=== PATIENT | female | born 1955 | race African-American/Black ===

== ENCOUNTER 2018-09-14 13:54 | Emergency (ER) | payer OTHER, MEDICAID ==
[~2018-09-14] VITALS: Ht 172.7 cm; Wt 91.0 kg
[~2018-09-14 13:54] MED LIST: HYDR-3282 MT; LISI40TA4 PO; PROM25TA13 MT; S350 MT
[2018-09-14 15:30] LABS: BASOPHILS % 0.2 % (0.0-2.0); CHLORIDE 100 mEq/L (98-107); EOSINOPHILS % 0.4 % (0.0-5.0); HEMATOCRIT. 45.9 % (36.0-48.0); HEMOGLOBIN. 15.5 g/dL (12.0-16.0); LYMPHOCYTES % 14.2 % (20.0-50.0); MEAN CORPUSCULAR HEMOGLOBIN 31.4 pg (28.0-32.0); MEAN CORPUSCULAR VOLUME 93.1 fL (81.0-99.0); MONOCYTES % 4.3 % (2.0-8.0); NEUTROPHILS % 80.9 % (40.0-76.0); PLATELET 266 x1000/uL (130-400); RED BLOOD CELL COUNT 4.93 mill/uL (4.2-5.4); RED CELL DISTRIBUTION WIDTH 13.3 % (11.6-14.6)
[2018-09-14 15:38] LABS: INR 1.1; PROTHROMBIN TIME 10.7 sec (9.1-11.1)
[2018-09-14 16:19] VITALS: BP 123/85
[2018-09-14 16:42] LABS: *AMPHETAMINES SCREEN URINE NEGATIVE (NEGATIVE); *BARBITURATES SCREEN URINE NEGATIVE (NEGATIVE)
[2018-09-14 16:43] LABS: *BENZODIAZEPINES SCREEN URINE NEGATIVE (NEGATIVE); *COCAINE SCREEN URINE NEGATIVE (NEGATIVE); METHADONE URINE SCREEN NEGATIVE (NEGATIVE); OPIATES URINE SCREEN NEGATIVE (NEGATIVE)
[2018-09-14 16:44] LABS: CANNABINOID URINE SCREEN NEGATIVE (NEGATIVE); PHENCYCLIDINE URINE SCREEN NEGATIVE (NEGATIVE)
== END 2018-09-14 16:50 | disposition home or self-care (01) ==
LOC: ER 13:54
DX: I11.0 Hypertensive heart disease with heart failure (principal); I50.9 Heart failure, unspecified; F17.200 Nicotine dependence, unspecified, uncomplicated; R53.1 Weakness; R42 Dizziness and giddiness; Z96.659 Presence of unspecified artificial knee joint; Z98.890 Other specified postprocedural states; Z88.5 Allergy status to narcotic agent; Z79.899 Other long term (current) drug therapy
CPT/HCPCS: 36415; 71045; 80305; 83880; 84484; 93005; 99284

== ENCOUNTER 2018-09-16 01:51 | Inpatient (IN) | payer OTHER, MEDICAID ==
[~2018-09-16] VITALS: Ht 172.7 cm; Wt 90.7 kg
[2018-09-16] MEDS ORDERED: FAMOTIDINE 20MG/2ML VIAL IV STA (03:10)
[2018-09-16] MEDS ORDERED: ONDANSETRON HCL 4MG/2ML INJ IV STA (03:10)
[2018-09-16] MEDS ORDERED: SODIUM CHLORIDE 0.9% 1,000 ML IV ONE ×2 (03:10→05:17)
[2018-09-16] MEDS ORDERED: KETOROLAC 30MG/ML VIAL IV STA (03:10)
[2018-09-16 04:08] LABS: HEMATOCRIT. 49.8 % (36.0-48.0); HEMOGLOBIN. 16.5 g/dL (12.0-16.0); MEAN CORPUSCULAR VOLUME 93.7 fL (81.0-99.0); MEAN PLATELET VOLUME 8.6 fl (7.4-10.4); PLATELET 260 x1000/uL (130-400); RED BLOOD CELL COUNT 5.32 mill/uL (4.2-5.4); RED CELL DISTRIBUTION WIDTH 13.8 % (11.6-14.6)
[2018-09-16 04:16] LABS: CHLORIDE 103 mEq/L (98-107)
[2018-09-16 07:06] LABS: PLATELET ESTIMATE NORMAL
[2018-09-16] MEDS ORDERED: IOHEXOL-300 100 ML BOTTLE ONE (07:36)
[2018-09-16 08:00] VITALS: BP 105/75
[2018-09-16 08:40] VITALS: BP 129/50
[2018-09-16] MEDS ORDERED: LEVOFLOXACIN 500MG PREMIX 100 ML IV SCH ×3 (10:15→17:00)
[2018-09-16] MEDS ORDERED: ACETAMINOPHEN 325MG TABLET PO PRN ×2 (10:15→10:30)
[2018-09-16] MEDS ORDERED: DEXT 5%/0.45% NACL KCL 20MEQ/L 1,000 ML IV SCH (10:15)
[2018-09-16] MEDS ORDERED: ONDANSETRON HCL 4MG/2ML INJ IV PRN ×2 (10:15→10:30)
[2018-09-16] MEDS ORDERED: DIPHENHYDRAMINE 50MG/ML VIAL IV PRN (10:30)
[2018-09-16] MEDS ORDERED: IPRATROPIUM/ALBUTEROL 0.5-3(2.5)MG/3ML NEB INH PRN (10:30)
[2018-09-16] MEDS ORDERED: MAGNESIUM/ALUMINUM HYDROXIDE/SIMETHICONE 30ML UDC PO PRN (10:30)
[2018-09-16] MEDS ORDERED: NA PHOS,M-B/NA PHOS,DI-BA ENEMA 118ML PR PRN (10:30)
[2018-09-16] MEDS ORDERED: DOCUSATE SODIUM 100MG CAPSULE PO PRN (10:30)
[2018-09-16] MEDS ORDERED: CLONIDINE 0.1MG TABLET PO PRN (10:30)
[2018-09-16] MEDS ORDERED: HYDROCODONE/ACETAMINOPHEN 5/325MG TABLET PO PRN (10:30)
[2018-09-16] MEDS ORDERED: ACETAMINOPHEN 650MG SUPP PR PRN (10:30)
[2018-09-16] MEDS ORDERED: GUAIFENESIN 200MG/10ML SUGAR FREE UDC PO PRN (10:30)
[2018-09-16] MEDS ORDERED: LORAZEPAM 0.5MG TABLET PO PRN (10:30)
[2018-09-16 12:00] VITALS: BP 129/54
[2018-09-16] MEDS ORDERED: PRED1TAB3 MT (12:40)
[2018-09-16] MEDS ORDERED: CARV3.1242 MT (12:40)
[2018-09-16] MEDS ORDERED: FURO-152 MT (12:40)
[2018-09-16] MEDS ORDERED: METRONIDAZOLE 500 MG PREMIX 100 ML IV SCH (13:00)
[2018-09-16] MEDS: CARISOPRODOL 350 MG TABLET PO PRN (13:23)
[2018-09-16] MEDS: ENOXAPARIN 40MG/0.4ML SYR SUBCUT SCH (13:24)
[2018-09-16 14:20] LABS: CLARITY URINE CLEAR (CLEAR); COLOR URINE YELLOW (YELLOW); KETONES URINE NEGATIVE (NEGATIVE); LEUKOCYTE ESTERASE URINE NEGATIVE (NEGATIVE); NITRITE URINE NEGATIVE (NEGATIVE); OCCULT BLOOD URINE NEGATIVE (NEGATIVE); PH URINE 5.5 (4.5-8.0); PROTEIN URINE NEGATIVE (NEGATIVE); SPECIFIC GRAVITY URINE 1.059 (1.005-1.030); UROBILINOGEN URINE 0.2 E.U./dL (0.2-1.0)
[2018-09-16 14:49] LABS: *AMPHETAMINES SCREEN URINE NEGATIVE (NEGATIVE); *BARBITURATES SCREEN URINE NEGATIVE (NEGATIVE)
[2018-09-16 14:50] LABS: *BENZODIAZEPINES SCREEN URINE NEGATIVE (NEGATIVE); *COCAINE SCREEN URINE NEGATIVE (NEGATIVE); CANNABINOID URINE SCREEN NEGATIVE (NEGATIVE); METHADONE URINE SCREEN NEGATIVE (NEGATIVE); OPIATES URINE SCREEN PRESUMTIVE POSITIVE (NEGATIVE); PHENCYCLIDINE URINE SCREEN NEGATIVE (NEGATIVE)
[2018-09-16 16:00] VITALS: BP 114/64
[2018-09-16] MEDS: DEXT 5%/0.45% NACL 1000ML 1,000 ML IV SCH (16:58)
[2018-09-16] MEDS: METRONIDAZOLE 500 MG PREMIX 100 ML IV SCH (19:41)
[2018-09-16 20:05] VITALS: BP 100/66
[2018-09-17] MEDS: METRONIDAZOLE 500 MG PREMIX 100 ML IV SCH ×2 (02:00→10:04)
[2018-09-17 04:00] VITALS: BP 108/71
[2018-09-17 06:33] LABS: BASOPHILS % 0.4 % (0.0-2.0); EOSINOPHILS % 5.2 % (0.0-5.0); HEMATOCRIT. 42.2 % (36.0-48.0); HEMOGLOBIN. 14.1 g/dL (12.0-16.0); LYMPHOCYTES % 20.3 % (20.0-50.0); MEAN CORPUSCULAR HEMOGLOBIN 31.2 pg (28.0-32.0); MEAN PLATELET VOLUME 8.8 fl (7.4-10.4); NEUTROPHILS % 61.1 % (40.0-76.0); PLATELET 175 x1000/uL (130-400); RED BLOOD CELL COUNT 4.54 mill/uL (4.2-5.4); RED CELL DISTRIBUTION WIDTH 13.8 % (11.6-14.6)
[2018-09-17 06:36] LABS: CHLORIDE 107 mEq/L (98-107)
[2018-09-17] MEDS: DEXT 5%/0.45% NACL 1000ML 1,000 ML IV SCH (06:42)
[2018-09-17 06:44] LABS: HDL CHOLESTEROL 51 mg/dL (40-59)
[2018-09-17 06:46] LABS: T4 FREE 0.97 ng/dL (0.76-1.46)
[2018-09-17 06:49] LABS: LDL CHOLESTEROL 66 mg/dL (5-100)
[2018-09-17] MEDS ORDERED: PANTOPRAZOLE 40MG DR TABLET PO SCH (07:20)
[2018-09-17 08:00] VITALS: BP 118/79
[2018-09-17] MEDS: ENOXAPARIN 40MG/0.4ML SYR SUBCUT SCH (08:32)
[2018-09-17] MEDS: CARISOPRODOL 350 MG TABLET PO PRN (10:11)
== END 2018-09-17 11:55 | disposition left against medical advice (07) | DRG 917 ==
LOC: ER 02:29 → 6EST 05:59 → EDBEDREQTM 06:01 → EDBEDREQ 06:01 → ENRESERV 08:00
PROVIDERS: ADMIT Internal Medicine; ATTEND Internal Medicine
DX: T62.91XA Toxic effect of unspecified noxious substance eaten as food, accidental (unintentional), initial encounter (principal); I50.23 Acute on chronic systolic (congestive) heart failure; J44.1 Chronic obstructive pulmonary disease with (acute) exacerbation; I11.0 Hypertensive heart disease with heart failure; Z53.21 Procedure and treatment not carried out due to patient leaving prior to being seen by health care provider; E86.0 Dehydration; K52.9 Noninfective gastroenteritis and colitis, unspecified; K57.30 Diverticulosis of large intestine without perforation or abscess without bleeding; Z96.659 Presence of unspecified artificial knee joint; F17.200 Nicotine dependence, unspecified, uncomplicated; R73.9 Hyperglycemia, unspecified; Z88.5 Allergy status to narcotic agent; Z79.899 Other long term (current) drug therapy; Z71.6 Tobacco abuse counseling; Z91.19 Patient's noncompliance with other medical treatment and regimen; Y92.89 Other specified places as the place of occurrence of the external cause
CPT/HCPCS: 36415; 71045; 74177; 80061; 80305; 82270; 83036; 84439; 84443; 87015; 87045; 87427; 87449; 87493; 89055; 93005; 93970; 96361; 96374; 96375; 97162; 99285; C1893; J1650; J1885; J1956; J2405; J3490; J7030; Q9967

== ENCOUNTER 2019-01-27 03:57 | Emergency (ER) | payer OTHER, MEDICAID ==
[~2019-01-27] VITALS: Ht 165.1 cm; Wt 72.0 kg
[~2019-01-27 03:57] MED LIST changes: +CARV3.1242 MT; +FURO-152 MT; +PRED1TAB3 MT
[2019-01-27] MEDS ORDERED: ASPIRIN 81MG TABLET PO ONE (05:00)
[2019-01-27] MEDS ORDERED: NITROGLYCERIN OINT 1GM/INCH UDPKT TD ONE (05:00)
[2019-01-27 05:09] LABS: BASOPHILS % 0.9 % (0.0-2.0); EOSINOPHILS % 6.6 % (0.0-5.0); HEMATOCRIT. 37.4 % (36.0-48.0); HEMOGLOBIN. 12.7 g/dL (12.0-16.0); LYMPHOCYTES % 41.9 % (20.0-50.0); MEAN CORPUSCULAR HEMOGLOBIN 32.3 pg (28.0-32.0); MEAN CORPUSCULAR VOLUME 94.8 fL (81.0-99.0); MEAN PLATELET VOLUME 8.8 fl (7.4-10.4); MONOCYTES % 10.9 % (2.0-8.0); NEUTROPHILS % 39.7 % (40.0-76.0); PLATELET 133 x1000/uL (130-400); RED BLOOD CELL COUNT 3.94 mill/uL (4.2-5.4); RED CELL DISTRIBUTION WIDTH 13.7 % (11.6-14.6)
[2019-01-27 05:17] LABS: CHLORIDE 107 mEq/L (98-107)
[2019-01-27] MEDS ORDERED: FUROSEMIDE 40MG/4ML VIAL IVP ONE (06:45)
[2019-01-27 10:08] VITALS: BP 112/60
== END 2019-01-27 10:27 | disposition short-term general hospital (02) ==
LOC: ER 04:37 → CANBEDREQ 06:55 → ER 10:27
DX: R07.89 Other chest pain (principal); I11.0 Hypertensive heart disease with heart failure; I50.9 Heart failure, unspecified; F17.210 Nicotine dependence, cigarettes, uncomplicated; Z71.6 Tobacco abuse counseling; Z96.659 Presence of unspecified artificial knee joint; Z88.5 Allergy status to narcotic agent; Z98.890 Other specified postprocedural states
CPT/HCPCS: 36415; 71045; 80053; 83880; 84484; 85025; 93005; 96374; 99285; 99406; J1940

== ENCOUNTER 2025-05-15 22:31 | Emergency (ER) | payer OTHER, MEDICAID ==
[~2025-05-15] VITALS: Ht 167.6 cm; Wt 96.0 kg
[~2025-05-15 22:31] MED LIST changes: +CARI-518 MT; -HYDR-3282 MT; +HYDR-4348 MT; +LISI40TA13 PO; -LISI40TA4 PO; -S350 MT
[2025-05-15 22:36] VITALS: BP 137/70; PULSE 96; RESP 16; TEMP 36.8; O2SAT 98
[2025-05-15] MEDS ORDERED: CEPH500T MT (23:29)
[2025-05-15] MEDS ORDERED: ACETAMINOPHEN 325MG TABLET PO ONE (23:30)
== END 2025-05-16 00:39 | disposition home or self-care (01) ==
LOC: ER 22:31
DX: S51.811A Laceration without foreign body of right forearm, initial encounter (principal); L03.90 Cellulitis, unspecified; I10 Essential (primary) hypertension; Z79.899 Other long term (current) drug therapy; Z88.0 Allergy status to penicillin; Z88.5 Allergy status to narcotic agent; X58.XXXA Exposure to other specified factors, initial encounter; Y93.89 Activity, other specified; Y92.89 Other specified places as the place of occurrence of the external cause; Y99.8 Other external cause status
CPT/HCPCS: 99283